=== PATIENT | female | born 1960 | race Two or more races ===

== ENCOUNTER 2024-10-07 16:12 | Emergency (ER) | payer SELFPAY ==
[~2024-10-07] VITALS: Ht 139.7 cm; Wt 113.6 kg
[2024-10-07 16:21] VITALS: TEMP 98.1
[2024-10-07 16:41] LABS: COVID AG,FIA SOURCE NASAL SWAB
[2024-10-07 17:02] LABS: SARS-COV2 (COVID) ANTIGEN,FIA Negative (Negative)
[2024-10-07 17:07] LABS: INFLUENZA TYPE A NEGATIVE FOR TYPE A (NEGATIVE); INFLUENZA TYPE B NEGATIVE FOR TYPE B (NEGATIVE)
[2024-10-07] MEDS: KETOROLAC TROMETHAMINE 30 MG/ML VIAL IM ONE (18:26)
[2024-10-07 18:40] VITALS: BP 175/90; PULSE 85; RESP 16; O2SAT 98
[2024-10-07] MEDS ORDERED: ONDA-104 PO (18:49)
[2024-10-07] MEDS ORDERED: IBUP-1492 PO (18:49)
== END 2024-10-07 18:59 | disposition home or self-care (01) ==
LOC: EMS 16:12
DX: A08.4 Viral intestinal infection, unspecified (principal); Z20.822 Contact with and (suspected) exposure to COVID-19
CPT/HCPCS: 99283; 87426; 87804; 96372; J1885